=== PATIENT | female | born 2000 | race Caucasian/White ===

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

== ENCOUNTER 2020-03-05 11:38 | Emergency (ER) | payer OTHER ==
[~2020-03-05] VITALS: Ht 160 cm; Wt 57.2 kg
[2020-03-05 11:42] VITALS: BP 127/74
--- NOTE | 2020-03-05 11:42 | NUR ---
PT TAKEN TO ER BED 11
--- NOTE | 2020-03-05 11:50 | NUR ---
PT C/O CONSISTENT THROBBING UMBILICAL PAIN RADIATING TO LEFT-SIDED LOWER BACK WITH NAUSEA, VOMITING, FATIGUE, NUMBNESS ON FINGERS, CHILLS, BROWNISH VAGINAL DISCHARGE FOR 3 DAYS. CHARLENE IUD WAS PLACED 11/29/2018. PATIENT REPORTS WARM SITZ BATH HELPS RELIEVE THE ABDOMINAL PAIN. DENIES FEVER, COUGH, SORE THROAT, MUSCLE ACHES, DIARRHEA, VAGINAL BLEEDING OR ODOROUS DISCHARGE. PT WAS TESTED POSITIVE CHLAMYDIA IN 11/29/2018 WITHOUT TREATMENT FOR THAT. PT IS SEXUALLY ACTIVE AND NOT USE CONDOMS. PATIENT STATES PAIN OF 3/10 AT THIS TIME; VSS; PATIENT POSITIONED FOR COMFORT; HOB ELEVATED; BEDRAILS UP X1; BED DOWN. ER MD MADE AWARE OF PT STATUS.
[2020-03-05] MEDS ORDERED: NACL 0.9% 1,000 ML IV SCH (12:01)
[2020-03-05] MEDS ORDERED: AZITHROMYCIN 250 MG TAB PO ONE (12:05)
[2020-03-05] MEDS ORDERED: ONDANSETRON 4 MG/2 ML VIAL IVP ONE (12:05)
--- NOTE | 2020-03-05 12:05 | NUR ---
ASSISTED DR. RABAGO FOR PELVIC EXAM AT BEDSIDE DURING THE WHOLE PROCEDURE.
[2020-03-05] MEDS ORDERED: cefTRIAXone 1,000 MG VIAL ONE (12:23)
--- NOTE | 2020-03-05 12:25 | NUR ---
U/S IS AT BEDSIDE.
[2020-03-05 12:31] LABS: BASOPHILS % (AUTO) 0.4 % (0.0-2.0); HEMATOCRIT 42.5 % (36-48); HEMOGLOBIN 14.6 g/dL (12.0-16.0); LYMPHOCYTES % (AUTO) 11.1 % (20.5-51.1); MEAN CORPUSCULAR HEMOGLOBIN 33 pg (27-31); MEAN CORPUSCULAR HGB CONC 34 g/dL (33-37); MONOCYTES # (AUTO) 0.4 K/uL (0.8-1.0); MONOCYTES % (AUTO) 4.4 % (1.7-9.3); NEUTROPHILS # (AUTO) 7.8 K/uL (1.8-7.7); NEUTROPHILS % (AUTO) 84.1 % (42.2-75.2); PLATELET COUNT (AUTO) 286 K/uL (140-450); RED BLOOD CELL COUNT(AUTO) 4.47 MIL/uL (4.20-5.40); RED CELL DISTRIBUTION WIDTH 12.9 % (11.6-13.7); WHITE BLOOD COUNT (AUTO) 9.2 K/uL (4.5-11.0)
--- NOTE | 2020-03-05 12:45 | NUR ---
PATIENT STATES SHE HAD ZOFRAN BEFORE LEAVING HOME. SHE WANTS TO HOLD 4MG ZOFRAN IVP UNTILL SHE FEELS NAUSEOUS AGAIN.
[2020-03-05 13:21] LABS: APPEARANCE,URINE HAZY (CLEAR); BILIRUBIN,URINE 2+ (NEGATIVE); BLOOD, URINE 2+ (NEGATIVE); COLOR,URINE YELLOW (YELLOW); LEUKOCYTE ESTERASE ,URINE NEGATIVE (NEGATIVE); NITRITE, URINE NEGATIVE (NEGATIVE); UGLUCOSE NEGATIVE (NEGATIVE)
[2020-03-05 13:50] LABS: ANION GAP 19.1 (8-16); CARBON DIOXIDE 23.8 mmol/L (21-32); TOTAL BILIRUBIN 1.1 mg/dL (0.0-1.0)
[2020-03-05 14:02] LABS: WBC,URINE 0-5 /HPF (0-5)
[2020-03-05 14:04] LABS: POTASSIUM 2.9 mmol/L (3.5-5.1)
[2020-03-05] MEDS ORDERED: POTASSIUM CHLORIDE 10 MEQ TABER PO ONE (14:10)
--- NOTE | 2020-03-05 14:39 | NUR ---
CALLED LAB TO SOUND INSTALLATION WORKER URINE SPECIMEN.
[2020-03-05 14:53] VITALS: BP 127/74
--- NOTE | 2020-03-05 14:53 | NUR ---
Patient discharged with v/s stable. Written and verbal after care instructions given and explained. Patient alert, oriented and verbalized understanding of instructions. Ambulatory with steady gait. All questions addressed prior to discharge. ID band removed. Patient advised to follow up with PMD. Rx of ZOFRAN AND PEPCID given. Patient educated on indication of medication including possible reaction and side effects. Opportunity to ask questions provided and answered.
== END 2020-03-05 14:53 | disposition home or self-care (01) ==
LOC: MED 11:38
DX: R10.10 Upper abdominal pain, unspecified (principal); R11.2 Nausea with vomiting, unspecified; F12.90 Cannabis use, unspecified, uncomplicated; Z20.2 Contact with and (suspected) exposure to infections with a predominantly sexual mode of transmission; Z98.890 Other specified postprocedural states
CPT/HCPCS: 36415; 76705; 80053; 81001; 81025; 82150; 83690; 85025; 87070; 87110; 87205; 87210; 87299; 96365; 96375; 99284; J0696; J2405; J7030; Q0092

== ENCOUNTER 2020-03-25 11:06 | Emergency (ER) | payer OTHER ==
[~2020-03-25] VITALS: Ht 157.5 cm; Wt 53.8 kg
[2020-03-25 11:07] VITALS: BP 137/78
--- NOTE | 2020-03-25 11:15 | NUR ---
19 YO Female presented to ER vomiting x 2 weeks. Pt previously came to [facility] ER x2 weeks for vomiting, was given Zofran. Pt states "every time I take Zofran I vomit." Pt states she has been taking Adona for the abdominal pain. Pt states on Friday she went to [facility] and was dx chlamydia and given tx. Pt states [facility]. Pt states she has had diarrhea x1 week but has not had a bm since 03/23/20. Pt denies blood in stool. LMP nov 2018 , pt states she had IUD. Pt c/o of loss of appetite. Pt resting in bed at lowest position, HOB elevated, side rails x1. Hx: none Rx: none
[2020-03-25] MEDS ORDERED: ONDANSETRON 4 MG ODT PO ONE (11:25)
[2020-03-25] MEDS ORDERED: NACL 0.9% 1,000 ML IV SCH (11:32)
[2020-03-25] MEDS ORDERED: MORPHINE SULFATE 4 MG/ML SYR IVP ONE (11:35)
[2020-03-25] MEDS ORDERED: diphenhydrAMINE 50 MG/ML VIAL IVP ONE (11:35)
[2020-03-25] MEDS ORDERED: PROCHLORPERAZINE 10 MG/2 ML VIAL IVP ONE (11:35)
[2020-03-25 11:58] LABS: APPEARANCE,URINE HAZY (CLEAR); BILIRUBIN,URINE 2+ (NEGATIVE); BLOOD, URINE 2+ (NEGATIVE); COLOR,URINE YELLOW (YELLOW); LEUKOCYTE ESTERASE ,URINE NEGATIVE (NEGATIVE); NITRITE, URINE NEGATIVE (NEGATIVE); UGLUCOSE NEGATIVE (NEGATIVE)
[2020-03-25 12:12] LABS: RBC,URINE 11-20 (MOD) /HPF (0-5); WBC,URINE 0-5 /HPF (0-5)
[2020-03-25 12:29] LABS: BASOPHILS # (AUTO) 0.1 K/uL (0.00-0.22); BASOPHILS % (AUTO) 0.4 % (0.0-2.0); EOSINOPHILS % (AUTO) 0.1 % (0.0-4.0); HEMATOCRIT 42.4 % (36-48); HEMOGLOBIN 15.2 g/dL (12.0-16.0); LYMPHOCYTES # (AUTO) 1.7 K/uL (2.5-16.5); LYMPHOCYTES % (AUTO) 12.6 % (20.5-51.1); MEAN CORPUSCULAR HEMOGLOBIN 33 pg (27-31); MEAN CORPUSCULAR HGB CONC 36 g/dL (33-37); MEAN CORPUSCULAR VOLUME 93.4 fL (80-94); MONOCYTES # (AUTO) 0.7 K/uL (0.8-1.0); MONOCYTES % (AUTO) 5.4 % (1.7-9.3); NEUTROPHILS # (AUTO) 10.8 K/uL (1.8-7.7); NEUTROPHILS % (AUTO) 81.5 % (42.2-75.2); PLATELET COUNT (AUTO) 300 K/uL (140-450); RED BLOOD CELL COUNT(AUTO) 4.54 MIL/uL (4.20-5.40); WHITE BLOOD COUNT (AUTO) 13.2 K/uL (4.5-11.0)
--- NOTE | 2020-03-25 12:30 | NUR ---
pt sleeping , verbally arousable, laying in lateral position w/ bed at lowest position, side rails X2 for pt safety.
[2020-03-25 12:43] LABS: ALBUMIN 5.3 g/dL (3.4-5.0); ANION GAP 23.9 (8-16); TOTAL BILIRUBIN 1.7 mg/dL (0.0-1.0)
[2020-03-25 12:57] LABS: POTASSIUM 2.9 mmol/L (3.5-5.1)
[2020-03-25] MEDS ORDERED: POTASSIUM CHLORIDE 10 MEQ TABER PO ONE (13:00)
[2020-03-25 13:19] VITALS: BP 113/71
--- NOTE | 2020-03-25 13:20 | NUR ---
Patient discharged with v/s stable. Written and verbal after care instructions given and explained. Patient alert, oriented and verbalized understanding of instructions. Ambulatory with steady gait. All questions addressed prior to discharge. ID band removed. Patient advised to follow up with PMD. Rx of Phenergan and Jackson given. Patient educated on indication of medication including possible reaction and side effects. Opportunity to ask questions provided and answered. Pt ambulatory w/ steady gait, pt denies dizziness. Pt states family member will take her home.
== END 2020-03-25 13:20 | disposition home or self-care (01) ==
LOC: MED 11:06
DX: R10.9 Unspecified abdominal pain (principal); R11.2 Nausea with vomiting, unspecified; R19.7 Diarrhea, unspecified; Z98.890 Other specified postprocedural states
CPT/HCPCS: 36415; 80053; 81001; 81025; 83690; 85025; 96361; 96374; 96375; 99284; J0780; J1200; J2270; J7030

== ENCOUNTER 2020-04-19 20:03 | Emergency (ER) | payer OTHER ==
[~2020-04-19] VITALS: Ht 160 cm; Wt 53.5 kg
[2020-04-19 20:15] VITALS: BP 110/94
[2020-04-19] MEDS ORDERED: KETOROLAC 30 MG/ML VIAL IVP ONE (20:30)
[2020-04-19] MEDS ORDERED: ONDANSETRON 4 MG/2 ML VIAL IVP ONE (20:30)
--- NOTE | 2020-04-19 20:30 | NUR ---
PT AMBULATED TO BED #9.
[2020-04-19 20:54] LABS: BASOPHILS # (AUTO) 0.1 K/uL (0.00-0.22); BASOPHILS % (AUTO) 1.6 % (0.0-2.0); EOSINOPHILS % (AUTO) 0.2 % (0.0-4.0); HEMATOCRIT 44.1 % (36-48); HEMOGLOBIN 15.2 g/dL (12.0-16.0); LYMPHOCYTES # (AUTO) 2.1 K/uL (2.5-16.5); LYMPHOCYTES % (AUTO) 25.3 % (20.5-51.1); MEAN CORPUSCULAR HEMOGLOBIN 33 pg (27-31); MEAN CORPUSCULAR HGB CONC 34 g/dL (33-37); MEAN CORPUSCULAR VOLUME 96.1 fL (80-94); MONOCYTES # (AUTO) 0.5 K/uL (0.8-1.0); MONOCYTES % (AUTO) 6.2 % (1.7-9.3); NEUTROPHILS # (AUTO) 5.5 K/uL (1.8-7.7); NEUTROPHILS % (AUTO) 66.7 % (42.2-75.2); PLATELET COUNT (AUTO) 353 K/uL (140-450); RED BLOOD CELL COUNT(AUTO) 4.59 MIL/uL (4.20-5.40); RED CELL DISTRIBUTION WIDTH 12.9 % (11.6-13.7); WHITE BLOOD COUNT (AUTO) 8.2 K/uL (4.5-11.0)
[2020-04-19 21:08] LABS: ALBUMIN 5.3 g/dL (3.4-5.0); ANION GAP 19.8 (8-16); CREATININE 1.1 mg/dL (0.6-1.3); POTASSIUM 3.8 mmol/L (3.5-5.1); TOTAL BILIRUBIN 1.4 mg/dL (0.0-1.0)
--- NOTE | 2020-04-19 21:15 | NUR ---
19F PRESENTS TO ED WITH C/O EPIGASTRIC PAIN X 2 DAYS.08/19 AND DESCRIBES IT PRESSURE AND THROBBING. ALSO C/O CHEST PAIN THAT COMES AND GOES. +VOMITING. BOYFRINED TESTED POSITIVE FOR COVID. PT GOT TESTED AND RESULTS CAME BACK NEG. NO SOB, COUGH, OR FEVER. NKA. PMH: SHOULDER SURGERY.
--- NOTE | 2020-04-19 21:46 | NUR ---
PT MEDICATED WITH ZOFRAN AND TORADOL IVP. TOLERATED WELL. NADR
[2020-04-19 21:47] VITALS: BP 110/94
--- NOTE | 2020-04-19 22:25 | NUR ---
pt still reports 10/10 pain. ermd made aware. advised to medicate with morphine.
[2020-04-19] MEDS ORDERED: MORPHINE SULFATE 4 MG/ML SYR IVP ONE (22:30)
--- NOTE | 2020-04-19 22:41 | NUR ---
pt medicated with morphine ivp. tolerated well. sharonr
--- NOTE | 2020-04-19 23:23 | NUR ---
Patient discharged with v/s stable. Written and verbal after care instructions given and explained. Patient alert, oriented and verbalized understanding of instructions. Ambulatory with steady gait. All questions addressed prior to discharge. ID band removed. Patient advised to follow up with PMD. Rx of PHENERGEN, MOTRIN, NORCO given. Patient educated on indication of medication including possible reaction and side effects. Opportunity to ask questions provided and answered.
== END 2020-04-19 23:23 | disposition home or self-care (01) ==
LOC: MED 20:03
DX: R10.13 Epigastric pain (principal); R11.2 Nausea with vomiting, unspecified
CPT/HCPCS: 36415; 80053; 81002; 81025; 82150; 83690; 85025; 93005; 96374; 96375; 99284; J1885; J2270; J2405

== ENCOUNTER 2020-07-20 10:06 | Emergency (ER) | payer OTHER ==
[~2020-07-20] VITALS: Ht 160 cm; Wt 54.4 kg
[2020-07-20 10:07] VITALS: BP 142/86
--- NOTE | 2020-07-20 10:18 | NUR ---
PT C/O DIFUSED ABDOMINAL PAIN 10/10 ACCOMPANIED BY NASUEA AND VOMITING FOR 2 DAYS. DENIES DIARRHEA, COUGH, FEVER, CP, SOB, OR SICK CONTACTS WITH COVID. ABDOMEN IS FLAT, SOFT, AND TENDER TO ALL QUADRANTS WITHOUT REBOUND TENDERNESS OR GUARDING. NO CVAT MICHELE. SKIN IS PINK/WARM/DRY; PT PRESENTS WITH AAOX4 WITH EVEN AND STEADY GAIT, PALE ON SKIN BUT NO DIAPHORESIS; HR EVEN AND REGULAR; PT DENIES ANY FEVER, CP, SOB, OR COUGH AT THIS TIME; PATIENT STATES PAIN OF 10/10 AT THIS TIME; VSS; PATIENT POSITIONED FOR COMFORT; HOB ELEVATED; BEDRAILS UP X1; BED DOWN. ER MD MADE AWARE OF PT STATUS.
[2020-07-20] MEDS ORDERED: NACL 0.9% 1,000 ML IV ONE ×2 (10:30→11:45)
[2020-07-20] MEDS ORDERED: diphenhydrAMINE 50 MG/ML VIAL IVP ONE (10:30)
[2020-07-20] MEDS ORDERED: METOCLOPRAMIDE 10 MG/2 ML INJ VIAL IVP ONE (10:30)
--- NOTE | 2020-07-20 10:58 | NUR ---
blood kia and sent to the lab.
[2020-07-20 11:07] LABS: BASOPHILS % (AUTO) 0.2 % (0.0-2.0); HEMOGLOBIN 14.9 g/dL (12.0-16.0); LYMPHOCYTES # (AUTO) 0.9 K/uL (2.5-16.5); LYMPHOCYTES % (AUTO) 7.3 % (20.5-51.1); MEAN CORPUSCULAR HEMOGLOBIN 33 pg (27-31); MEAN CORPUSCULAR HGB CONC 35 g/dL (33-37); MEAN CORPUSCULAR VOLUME 94.8 fL (80-94); MONOCYTES # (AUTO) 0.3 K/uL (0.8-1.0); MONOCYTES % (AUTO) 2.5 % (1.7-9.3); PLATELET COUNT (AUTO) 328 K/uL (140-450); RED BLOOD CELL COUNT(AUTO) 4.53 MIL/uL (4.20-5.40); RED CELL DISTRIBUTION WIDTH 12.9 % (11.6-13.7); WHITE BLOOD COUNT (AUTO) 12.2 K/uL (4.5-11.0)
[2020-07-20 11:40] LABS: ALBUMIN 5.1 g/dL (3.4-5.0); ANION GAP 22.2 (8-16); CARBON DIOXIDE 18.9 mmol/L (21-32); CREATININE 0.9 mg/dL (0.6-1.3); POTASSIUM 4.1 mmol/L (3.5-5.1)
[2020-07-20 11:41] LABS: APPEARANCE,URINE CLEAR (CLEAR); BILIRUBIN,URINE NEGATIVE (NEGATIVE); BLOOD, URINE TRACE-I (NEGATIVE); COLOR,URINE YELLOW (YELLOW); LEUKOCYTE ESTERASE ,URINE NEGATIVE (NEGATIVE); NITRITE, URINE NEGATIVE (NEGATIVE); PH,URINE 8.5 (5.0-9.0); UGLUCOSE NEGATIVE (NEGATIVE)
--- NOTE | 2020-07-20 11:41 | NUR ---
URINE OBTAINED AND SENT TO THE LAB.
[2020-07-20 12:03] LABS: RBC,URINE 0-5 /HPF (0-5); WBC,URINE 0-5 /HPF (0-5)
[2020-07-20 12:37] LABS: BARBITURATE, URINE NEGATIVE ng/ml (NEG <=200); BENZODIAZEPINE, URINE NEGATIVE ng/mL (NEG <=200); CANNABINOID, URINE POSITIVE ng/mL (NEG <=50); COCAINE, URINE NEGATIVE ng/mL (NEG <=300); OPIATE, URINE NEGATIVE ng/mL (NEG <=2000); PHENCYCLIDINE SCREEN,URINE NEGATIVE ng/mL (NEG <=25)
[2020-07-20] MEDS ORDERED: KETOROLAC 30 MG/ML VIAL IM/IVP ONE (13:05)
--- NOTE | 2020-07-20 13:48 | NUR ---
pt is resting in the bed. vss, will continue monitoring pt's vital signs.
[2020-07-20] MEDS ORDERED: MORPHINE SULFATE 4 MG/ML SYR IVP ONE (14:45)
[2020-07-20 15:05] VITALS: BP 103/59
--- NOTE | 2020-07-20 15:05 | NUR ---
Patient discharged with v/s stable. Written and verbal after care instructions given and explained. Patient alert, oriented and verbalized understanding of instructions. Ambulates with steady gait. All questions addressed prior to discharge. ID band removed. Patient advised to follow up with PMD. Rx of phenergen and norco given. Patient educated on indication of medication including possible reaction and side effects. Opportunity to ask questions provided and answered.
== END 2020-07-20 15:05 | disposition home or self-care (01) ==
LOC: MED 10:06
DX: R11.2 Nausea with vomiting, unspecified (principal); R10.13 Epigastric pain; F12.10 Cannabis abuse, uncomplicated; B96.81 Helicobacter pylori [H. pylori] as the cause of diseases classified elsewhere
CPT/HCPCS: 36415; 80053; 80305; 81001; 83690; 84702; 85025; 96361; 96374; 96375; 99284; J1200; J1885; J2270; J2765; J7030

== ENCOUNTER 2020-07-23 07:23 | Emergency (ER) | payer OTHER ==
[~2020-07-23] VITALS: Ht 160 cm; Wt 52.2 kg
[2020-07-23 07:38] VITALS: BP 123/60
--- NOTE | 2020-07-23 07:46 | NUR ---
Patient ambulated to bed 12. RN evaluating the patient at bedside.
--- NOTE | 2020-07-23 07:54 | NUR ---
20 y/o female from home c/o constant sharp/burning abd pain x 6 months. Pt tested + for H. Pylori i month ago and given medication, states she was taking wrong dosage and tested + for H. Pylori again last week. C/O N/V/D. 10/10 pain with no relief with medication. States she has appt with GI specialist next month. Abd soft, flat, nontender to palp. Bowel sounds present x 4 quad. Pt positioned for comfort. VSS
--- NOTE | 2020-07-23 07:55 | NUR ---
Pt ambulated to restroom for collection of urine.
--- NOTE | 2020-07-23 08:03 | NUR ---
Dr Piper at bedside examining pt
[2020-07-23] MEDS ORDERED: NACL 0.9% 1,000 ML IV ONE (08:10)
[2020-07-23] MEDS ORDERED: PANTOPRAZOLE 40 MG INJ VIAL IVP ONE (08:10)
[2020-07-23] MEDS ORDERED: ONDANSETRON 4 MG/2 ML VIAL IVP ONE (08:10)
[2020-07-23] MEDS ORDERED: KETOROLAC 30 MG/ML VIAL IVP ONE (08:10)
--- NOTE | 2020-07-23 08:15 | NUR ---
20G IV placed to right AC, blood drawn and given to lab.
[2020-07-23 08:39] LABS: BASOPHILS % (AUTO) 0.4 % (0.0-2.0); EOSINOPHILS # (AUTO) 0.1 K/uL (0-0.4); EOSINOPHILS % (AUTO) 1.5 % (0.0-4.0); HEMATOCRIT 43.3 % (36-48); HEMOGLOBIN 15.1 g/dL (12.0-16.0); LYMPHOCYTES # (AUTO) 1.9 K/uL (2.5-16.5); LYMPHOCYTES % (AUTO) 24.7 % (20.5-51.1); MEAN CORPUSCULAR HEMOGLOBIN 33 pg (27-31); MEAN CORPUSCULAR HGB CONC 35 g/dL (33-37); MONOCYTES # (AUTO) 0.4 K/uL (0.8-1.0); MONOCYTES % (AUTO) 4.6 % (1.7-9.3); NEUTROPHILS # (AUTO) 5.3 K/uL (1.8-7.7); NEUTROPHILS % (AUTO) 68.8 % (42.2-75.2); PLATELET COUNT (AUTO) 275 K/uL (140-450); RED BLOOD CELL COUNT(AUTO) 4.51 MIL/uL (4.20-5.40); RED CELL DISTRIBUTION WIDTH 12.8 % (11.6-13.7); WHITE BLOOD COUNT (AUTO) 7.7 K/uL (4.5-11.0)
[2020-07-23 08:43] LABS: ACETAMINOPHEN < 0.5 ug/ml (10-30); SALICYLATE < 2.8 mg/dL (2.8-20.0)
[2020-07-23 08:49] LABS: ALBUMIN 4.8 g/dL (3.4-5.0); ANION GAP 17.9 (8-16); CARBON DIOXIDE 21.4 mmol/L (21-32); CREATININE 0.8 mg/dL (0.6-1.3); POTASSIUM 3.3 mmol/L (3.5-5.1); TOTAL BILIRUBIN 0.8 mg/dL (0.0-1.0)
--- NOTE | 2020-07-23 09:02 | NUR ---
Ultrasound at bedside.
[2020-07-23 09:22] LABS: BARBITURATE, URINE NEGATIVE ng/ml (NEG <=200); BENZODIAZEPINE, URINE NEGATIVE ng/mL (NEG <=200); CANNABINOID, URINE POSITIVE ng/mL (NEG <=50); COCAINE, URINE NEGATIVE ng/mL (NEG <=300); OPIATE, URINE POSITIVE ng/mL (NEG <=2000); PHENCYCLIDINE SCREEN,URINE NEGATIVE ng/mL (NEG <=25)
[2020-07-23] MEDS ORDERED: HALOPERIDOL IM 5 MG/ML VIAL IVP ONE (09:30)
[2020-07-23] MEDS ORDERED: diphenhydrAMINE 50 MG/ML VIAL IVP ONE (09:30)
--- NOTE | 2020-07-23 09:40 | NUR ---
Pt states 6/10 pain at this time, anxious/restless in bed. Dr Piper made aware
--- NOTE | 2020-07-23 09:51 | NUR ---
Pt ambulated to restroom with steady gait
[2020-07-23 10:04] VITALS: BP 121/64
--- NOTE | 2020-07-23 10:04 | NUR ---
Patient discharged with v/s stable. Written and verbal after care instructions given and explained. Patient alert, oriented and verbalized understanding of instructions. Ambulatory with steady gait. All questions addressed prior to discharge. ID band removed. Patient advised to follow up with PMD. Rx of Omeprazole 40mg, Carafate 1g, and Clarithromycin 500mg given. Patient educated on indication of medication including possible reaction and side effects. Opportunity to ask questions provided and answered.
== END 2020-07-23 10:04 | disposition home or self-care (01) ==
LOC: MED 07:23
DX: K29.50 Unspecified chronic gastritis without bleeding (principal); F12.10 Cannabis abuse, uncomplicated; R03.0 Elevated blood-pressure reading, without diagnosis of hypertension
CPT/HCPCS: 36415; 76705; 80053; 80305; 83690; 85025; 96361; 96374; 96375; 99284; C9113; G0480; G0482; J1200; J1630; J1885; J2405; J7030; Q0092

== ENCOUNTER 2020-11-20 12:32 | Emergency (ER) | payer OTHER ==
[~2020-11-20] VITALS: Ht 160 cm; Wt 53.1 kg
[2020-11-20 12:51] VITALS: BP 122/86
[2020-11-20] MEDS ORDERED: ONDANSETRON 4 MG/2 ML VIAL IVP ONE (13:35)
[2020-11-20] MEDS ORDERED: MORPHINE SULFATE 4 MG/ML SYR IVP ONE (13:35)
[2020-11-20] MEDS ORDERED: NACL 0.9% 1,000 ML IV ONE (13:35)
[2020-11-20 13:42] LABS: BASOPHILS # (AUTO) 0.1 K/uL (0.00-0.22); BASOPHILS % (AUTO) 0.6 % (0.0-2.0); HEMATOCRIT 41.8 % (36-48); HEMOGLOBIN 14.8 g/dL (12.0-16.0); LYMPHOCYTES # (AUTO) 1.6 K/uL (2.5-16.5); LYMPHOCYTES % (AUTO) 14.6 % (20.5-51.1); MEAN CORPUSCULAR HEMOGLOBIN 33 pg (27-31); MEAN CORPUSCULAR HGB CONC 35 g/dL (33-37); MEAN CORPUSCULAR VOLUME 92.5 fL (80-94); MONOCYTES # (AUTO) 0.3 K/uL (0.8-1.0); MONOCYTES % (AUTO) 2.9 % (1.7-9.3); NEUTROPHILS # (AUTO) 8.7 K/uL (1.8-7.7); NEUTROPHILS % (AUTO) 81.9 % (42.2-75.2); PLATELET COUNT (AUTO) 334 K/uL (140-450); RED BLOOD CELL COUNT(AUTO) 4.51 MIL/uL (4.20-5.40); RED CELL DISTRIBUTION WIDTH 12.9 % (11.6-13.7); WHITE BLOOD COUNT (AUTO) 10.7 K/uL (4.5-11.0)
[2020-11-20 13:58] LABS: ALBUMIN 5.1 g/dL (3.4-5.0); ANION GAP 17.9 (8-16); TOTAL BILIRUBIN 1.1 mg/dL (0.0-1.0)
--- NOTE | 2020-11-20 14:00 | NUR ---
20 y/o female from home c/o lower abd pain x 3 days with nausea/vomiting. Tender to palpation, bowel sounds present. Pt states increased pain with ambuation. Low grade fever upon arrival. 10/10 sharp pain. VSS medhx: denies
--- NOTE | 2020-11-20 14:08 | NUR ---
20G IV placed to right ac with good blood return
[2020-11-20 14:13] LABS: POTASSIUM 2.9 mmol/L (3.5-5.1)
[2020-11-20] MEDS ORDERED: POTASSIUM CHLORIDE 10 MEQ TABER PO ONE (15:20)
--- NOTE | 2020-11-20 15:22 | NUR ---
PT TAKEN TO CT VIA W/C.
--- NOTE | 2020-11-20 15:41 | NUR ---
PT BROUGHT BACK FROM CT VIA W/C.
[2020-11-20] MEDS ORDERED: cefTRIAXone 250 MG VIAL ONE (16:11)
[2020-11-20 16:38] LABS: APPEARANCE,URINE CLEAR (CLEAR); BILIRUBIN,URINE 1+ (NEGATIVE); BLOOD, URINE 2+ (NEGATIVE); COLOR,URINE YELLOW (YELLOW); LEUKOCYTE ESTERASE ,URINE NEGATIVE (NEGATIVE); NITRITE, URINE NEGATIVE (NEGATIVE); UGLUCOSE NEGATIVE (NEGATIVE)
[2020-11-20 16:45] LABS: WBC,URINE 0-5 /HPF (0-5)
[2020-11-20 16:46] LABS: URINE AMORPHOUS URATE 3+ /HPF (None Seen)
--- NOTE | 2020-11-20 16:51 | NUR ---
Patient discharged with v/s stable. Written and verbal after care instructions given and explained. Patient alert, oriented and verbalized understanding of instructions. Ambulatory with steady gait. All questions addressed prior to discharge. ID band removed. Patient advised to follow up with PMD. Rx of zofran, bentyl, doxycycline given. Patient educated on indication of medication including possible reaction and side effects. Opportunity to ask questions provided and answered.
--- NOTE | 2020-11-22 09:56 | NUR ---
LATE ENTRY -- NORMAL SALINE INFUSION ENDED AT 1519.
== END 2020-11-20 16:51 | disposition home or self-care (01) ==
LOC: MED 12:32
DX: R10.2 Pelvic and perineal pain (principal); E87.6 Hypokalemia; Z11.3 Encounter for screening for infections with a predominantly sexual mode of transmission
CPT/HCPCS: 36415; 74177; 80053; 81001; 81025; 83690; 84703; 85025; 87491; 96361; 96365; 96375; 99285; J0696; J2270; J2405; J7030; Q9967; 81002; 99281

== ENCOUNTER 2021-08-16 10:49 | Emergency (ER) | payer OTHER ==
[~2021-08-16] VITALS: Ht 160 cm; Wt 59.0 kg
[2021-08-16 10:52] VITALS: BP 124/68
--- NOTE | 2021-08-16 11:11 | NUR ---
BIB SELF C/O 7/10 LOWER ABDOMINAL PAIN, URINARY FREQUENCY X 1 WEEK. PMH: BREAST IMPLANT
--- NOTE | 2021-08-16 11:53 | NUR ---
PT TAKEN TO ER BED 10.
[2021-08-16] MEDS ORDERED: MECLIZINE 25 MG TAB PO ONE (12:05)
[2021-08-16] MEDS ORDERED: NACL 0.9% 1,000 ML IV SCH (12:05)
[2021-08-16] MEDS ORDERED: ONDANSETRON 4 MG/2 ML VIAL IVP ONE (12:05)
--- NOTE | 2021-08-16 12:36 | NUR ---
US AT PT BEDSIDE.
--- NOTE | 2021-08-16 12:48 | NUR ---
AUDIO TECHNICIAN AT PT BEDSIDE.
[2021-08-16 13:02] LABS: BASOPHILS % (AUTO) 0.5 % (0.0-2.0); EOSINOPHILS # (AUTO) 0.1 K/uL (0-0.4); EOSINOPHILS % (AUTO) 0.8 % (0.0-4.0); HEMATOCRIT 43.6 % (36-48); HEMOGLOBIN 14.9 g/dL (12.0-16.0); LYMPHOCYTES # (AUTO) 2.1 K/uL (2.5-16.5); MEAN CORPUSCULAR HEMOGLOBIN 33 pg (27-31); MEAN CORPUSCULAR HGB CONC 34 g/dL (33-37); MEAN CORPUSCULAR VOLUME 95.4 fL (80-94); MONOCYTES # (AUTO) 0.4 K/uL (0.8-1.0); MONOCYTES % (AUTO) 5.2 % (1.7-9.3); NEUTROPHILS # (AUTO) 5.6 K/uL (1.8-7.7); NEUTROPHILS % (AUTO) 67.5 % (42.2-75.2); PLATELET COUNT (AUTO) 312 K/uL (140-450); RED BLOOD CELL COUNT(AUTO) 4.57 MIL/uL (4.20-5.40); RED CELL DISTRIBUTION WIDTH 12.7 % (11.6-13.7); WHITE BLOOD COUNT (AUTO) 8.3 K/uL (4.8-10.8)
[2021-08-16 14:15] VITALS: BP 124/68
--- NOTE | 2021-08-16 14:16 | NUR ---
Patient discharged with v/s stable. Written and verbal after care instructions given and explained. Patient verbalized understanding. Ambulatory with steady gait. All questions addressed prior to discharge. Advised to follow up with PMD.
== END 2021-08-16 14:16 | disposition home or self-care (01) ==
LOC: MED 10:49
DX: O26.899 Other specified pregnancy related conditions, unspecified trimester (principal); R10.30 Lower abdominal pain, unspecified; R35.0 Frequency of micturition; Z98.890 Other specified postprocedural states
CPT/HCPCS: 36415; 76801; 76817; 81002; 81025; 84702; 85025; 99284; J2405; J8597; Q0092

== ENCOUNTER 2021-09-13 19:06 | Emergency (ER) | payer OTHER ==
--- NOTE | 2021-09-13 19:44 | NUR ---
PATIENT CALLED-- NO ANSWER
--- NOTE | 2021-09-13 20:00 | NUR ---
PATIENT LEFT WITHOUT BEING SEEN BY DR. FERRER. NO FURTHER CARE PROVIDED FOR PATIENT.
--- NOTE | 2021-09-13 20:00 | NUR ---
PATIENT CALLED-- NO ANSWER
== END 2021-09-13 19:44 | disposition left against medical advice (07) ==
LOC: MED 19:06
DX: Z53.21 Procedure and treatment not carried out due to patient leaving prior to being seen by health care provider (principal)

== ENCOUNTER 2021-12-21 13:51 | Emergency (ER) | payer OTHER ==
[~2021-12-21] VITALS: Ht 160 cm; Wt 65.3 kg
[2021-12-21 14:07] VITALS: BP 110/72
--- NOTE | 2021-12-21 14:12 | NUR ---
PT AMBULATED TO ER BED 2
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
[2021-12-21] MEDS ORDERED: ACETAMINOPHEN EXTRA STRENGTH 500 MG TAB PO ONE (14:30)
[2021-12-21] MEDS ORDERED: ACET-2214 PO (14:36)
[2021-12-21] MEDS ORDERED: PRETAB PO (14:36)
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
[2021-12-21 15:54] VITALS: BP 115/69
--- NOTE | 2021-12-21 15:55 | NUR ---
Patient discharged with v/s stable. Written and verbal after care instructions given and explained. Patient alert, oriented and verbalized understanding of instructions. Ambulatory with steady gait. All questions addressed prior to discharge. ID band removed. Patient advised to follow up with PMD. Rx of aceaminophen, vitamins7 given. Patient educated on indication of medication including possible reaction and side effects. Opportunity to ask questions provided and answered.
== END 2021-12-21 15:55 | disposition home or self-care (01) ==
LOC: MED 13:51 → EDSTATUS 13:51 → MED 15:55
DX: O9A.212 Injury, poisoning and certain other consequences of external causes complicating pregnancy, second trimester (principal); S00.83XA Contusion of other part of head, initial encounter; Z3A.22 22 weeks gestation of pregnancy; Z79.899 Other long term (current) drug therapy; Y04.2XXA Assault by strike against or bumped into by another person, initial encounter; Y93.89 Activity, other specified; Y92.89 Other specified places as the place of occurrence of the external cause; Y99.8 Other external cause status
CPT/HCPCS: 99284